=== PATIENT | female | born 1960 | race Caucasian/White ===

== ENCOUNTER → 2019-01-23 12:27 | Outpatient (CLI) | payer OTHER ==
[2015-05-09 09:07] VITALS: BMI 35.9
[~2019-01-23 12:27] MED LIST: CELEXA40 MG PO; COZAAR25 MG PO; DIFLUCAN150 MG PO; HYDROCHLOROTHIA25 MG PO; NYSTATIN ORAL SU5 ML PO
--- NOTE | 2019-01-27 13:08 | EC ---
PATIENT:DEVENDRA SAWANT DATE OF SERVICE: 01/23/19 SEX: F MEDICAL RECORD: [id number] DATE OF : 60 LOCATION:[facility] AGE OF PATIENT: 58 ADMISSION DATE: 01/23/19 REFERRING PHYSICIAN: INTERPRETING PHYSICIAN: CATHLEEN SANTANA MD ECHOCARDIOGRAM REPORT ECHO CHARGES 4 ECHO COMPLETE Date: 01/23/19 CLINICAL DIAGNOSIS: HTN/ASSESS EF AND VALVES, HX OF SVT ECHOCARDIOGRAPHIC MEASUREMENTS (adult normal given) AC root (d.<3.7cm) 3.1 cm LV Septum d (<1.2 cm> 1.4 cm Valve Excursion 1.8 cm LV Septum (systole) 1.5 cm Left Atria (s.<4.0cm> 3.7 cm LVPW d(<1.2cm) 1.5 cm RV (d.<2.3cm) 2.9 cm LVPW (sytole) 1.8 cm LV diastole(<5.6CM) 5.1 cm MV E-F(>70mm/sec) cm LV systole 3.1 cm LVOT Diameter 2.0 cm MV exc.(>10mm) 0.90 cm Est.ejection fraction (50-75%) % DOPPLER: LVIT cm/sec A 80.0 cm/sec E 90.0 cm/sec LA cm/sec RVSP 25 mmHg LVOT 104 cm/sec AOP1/2T m/s Asc. Ao 149 cm/sec RVOT 97 cm/sec RA cm/sec PA 119 cm/sec AV Gradient Peak 8.91 mmHg AV Mean 4.46 mmHg AV Area 2.3 cm MV Gradient Peak 6.42 mmHg MV Mean 2.76 mmHg MV Area cm COMMENTS: Chicken Cleaner: 2 BOO SIMPSON Channel Installer: 3 Dr. Vann TAPE# PACS Pericardial Effusion N DATE OF SERVICE: Adequate 2D, Color Flow, Spectral Doppler, And M-Mode Mild LVH. LV internal dimension is normal. Wall motion is normal. EF is greater than or equal to 55%. Aortic valve is sclerotic. There is no evidence of stenosis by Doppler interrogation. Left atrium is normal at 3.7 cm. Mitral valve shows no prolapse. Trace MR. Right-sided chambers are grossly normal. Mild TR. ECHOCARDIOGRAM REPORT [id number] DEVENDRA SAWANT TRANSINT:[id number] Voice Confirmation ID: [id number] DOCUMENT ID: [id number] CATHLEEN SANTANA MD at 1308 CC: [id number] DICTATION DATE: 01/26/19 1529 [employer] ADMINISTRATOR: 01/27/19 0119 DEP CLI 01/23/19 [place] [id number] [place] [id number]
== END | disposition home or self-care (01) ==
LOC: D.HCCARDIO 01-14 13:00 → D.HCCECHO 01-15 09:00 → D.HCCARDIO 01-15 09:00 → D.HCCECHO 12:27
PROVIDERS: ATTEND Internal Medicine Interventional Cardiology
DX: I10 Essential (primary) hypertension (principal)

== ENCOUNTER 2019-01-30 09:00 | Outpatient (CLI) | payer OTHER ==
[2015-05-09 09:07] VITALS: BMI 35.9
== END 2019-01-30 10:00 | disposition home or self-care (01) ==
LOC: D.MAMMO 09:00
PROVIDERS: ATTEND Internal Medicine
DX: Z12.31 Encounter for screening mammogram for malignant neoplasm of breast (principal)

== ENCOUNTER → 2019-03-06 22:23 | Outpatient (CLI) | payer OTHER ==
[2015-05-09 09:07] VITALS: BMI 35.9
== END | disposition home or self-care (01) ==
LOC: D.MAMMO 10:30
PROVIDERS: ATTEND Internal Medicine
DX: R92.1 Mammographic calcification found on diagnostic imaging of breast (principal)

== ENCOUNTER → 2020-01-25 09:34 | Outpatient (CLI) | payer OTHER ==
[2015-05-09 09:07] VITALS: BMI 35.9
== END | disposition home or self-care (01) ==
LOC: D.HCCECHO 09:34
PROVIDERS: ATTEND Internal Medicine Interventional Cardiology
DX: I10 Essential (primary) hypertension (principal)

== ENCOUNTER → 2020-08-16 08:09 | Outpatient (CLI) | payer OTHER ==
[2015-05-09 09:07] VITALS: BMI 35.9
--- NOTE | ~2020-08-16 | ST ---
PATIENT:DEVENDRA SAWANT MEDICAL RECORD: [id number] SEX: F LOCATION:[facility] ORDER #: ADMISSION DATE: 08/16/20 AGE OF PATIENT: 60 REFERRING PHYSICIAN: INTERPRETING PHYSICIAN: CATHLEEN SANTANA MD DATE OF SERVICE: 08/16/2020 NUCLEAR STRESS TEST GATED: Normal. Normal wall motion. Normal EF. Calculated EF 75%. SPECT IMAGING: SPECT imaging was performed. 1. Short axis view: Short axis view shows reversible defect extending from the inferior base down to the mid inferior wall. This confirmed in the horizontal axis with a reversible defect from the inferior base down to the mid inferior wall. 2. Vertical axis: Vertical axis shows good uptake along the lateral wall and septum. FINAL IMPRESSION: 1. Normal gated, normal wall motion, ejection fraction 75%. 2. Abnormal SPECT imaging with a reversible defect in the inferior base down to mid inferior wall seen in 2 views. FINAL RECOMMENDATIONS: In this patient with multiple risk factors for coronary artery disease and ongoing anginal symptomatology, I would consider diagnostic angiography to further delineate anatomy. TRANSINT:[id number] Voice Confirmation ID: [id number] DOCUMENT ID: [id number] CATHLEEN SANTANA MD CC: [id number] DICTATION DATE: 08/17/20 1110 TORCH STRAIGHTENER AND HEATER: 08/18/20 0402 DEP CLI 08/16/20 [place] [id number] [place] [id number]
== END | disposition home or self-care (01) ==
LOC: D.HCCARDIO 08:09
PROVIDERS: ATTEND Internal Medicine Interventional Cardiology
DX: I20.9 Angina pectoris, unspecified (principal)